=== PATIENT | male | born 1980 | race Caucasian/White ===

== ENCOUNTER 2021-06-30 17:54 | Emergency (ER) | payer OTHER ==
[~2021-06-30] VITALS: Ht 185.4 cm; Wt 72.8 kg
[2021-06-30 19:09] LABS: BASOPHILS % (AUTO) 0 % (0-1); EOSINOPHILS % (AUTO) 1 % (1-7); LYMPHOCYTES % (AUTO) 17 % (22-44); MEAN CORPUSCULAR HEMOGLOBIN 31.6 pg (27.5-34.5); MEAN CORPUSCULAR HGB CONC 35.8 g/dL (33.2-36.2); MEAN PLATELET VOLUME 7.6 fL (7.4-10.4); MONOCYTES % (AUTO) 7 % (2-9); NEUTROPHILS % (AUTO) 75 % (42-75); PLATELET COUNT 276 x10^3/uL (130-400); RED BLOOD COUNT 5.14 x10^6/uL (4.38-5.82); RED CELL DISTRIBUTION WIDTH 12.7 % (9.4-14.8)
[2021-06-30 19:26] LABS: ALANINE AMINOTRANSFERASE 35 U/L (12-78); ANION GAP 7 mmol/L (5-15); CALCIUM 8.5 mg/dL (8.5-10.1); CHLORIDE 104 mmol/L (98-107); CREATININE 0.86 mg/dL (0.7-1.3)
[2021-06-30 19:30] LABS: ALKALINE PHOSPHATASE 102 U/L (45-117); BILIRUBIN,TOTAL 0.5 mg/dL (0.2-1.0); TROPONIN I < 0.015 ng/mL (0.000-0.045)
--- NOTE | 2021-06-30 22:10 | NUR ---
pt presents to ed with c/on pressure in chest and left arm tingling starting today. pt denies tingling at this time, states chest pressure has gone down. pt a&o, resps even and unlabored, vss, erickn.
--- NOTE | 2021-06-30 22:18 | NUR ---
josue Rowland at bedside for eval
--- NOTE | 2021-06-30 23:30 | NUR ---
pt resting in bed, vss, nadn. awaiting d-dimer lab result and dispo
[2021-06-30] MEDS ORDERED: OMNIPAQUE 350 MG/ML, 100ML BOTTLE ONE (23:40)
--- NOTE | 2021-07-01 00:12 | NUR ---
pt to cta
--- NOTE | 2021-07-01 00:30 | NUR ---
pt back from ct, a&o, resps even and unlabored, vss, erickn.
[2021-07-01 01:42] VITALS: BP 109/56
--- NOTE | 2021-07-01 02:07 | NUR ---
pt educated on dc instructions and return criteria, verbalized undertsanding. ambulatory to dc desk with steady gait.
== END 2021-07-01 02:14 | disposition home or self-care (01) ==
LOC: ED 23:00
DX: U07.1 COVID-19 (principal); R07.89 Other chest pain
CPT/HCPCS: 36415; 71045; 71275; 80053; 84484; 85025; 85379; 93005; 99285; Q9967